=== PATIENT | male | born 1980 | race Caucasian/White ===

== ENCOUNTER 2016-10-15 22:33 | Emergency (ER) | payer MEDICAID, OTHER ==
[~2016-10-15] VITALS: Ht 167.6 cm; Wt 92.5 kg
[2016-10-15 22:37] VITALS: Ht 167.6 cm; Wt 92.5 kg
[2016-10-15] MEDS ORDERED: CETI10CA PO (23:49)
[2016-10-15] MEDS ORDERED: ERYTOPOI RIGHT EYE (23:49)
[2016-10-15] MEDS ORDERED: NAPH15DR22 BOTH EYES (23:49)
--- NOTE | 2016-10-16 00:05 | ERD ---
ER Documentation Chief Complaint Date/Time DATE: 10/16/16 TIME: 00:01 Chief Complaint right upper eyelid swelling/pain HPI 36-year-old male presents here in emergency department for complaints of a bump in the right upper eyelid that started yesterday. Patient is complaining of pain sharp pain 6/10 scale, is worse upon touching the area. Patient is complaining of bilateral eye itching watery eyes for the last 2 months. Patient denies any eye discharge. Patient denies any fever or chills. Patient denies any trauma in the eye. Patient denies any vision changes. ROS All systems reviewed and are negative except as per history of present illness. Medications Home Meds Active Scripts Cetirizine Hcl* (Zyrtec*) 10 Mg Capsule, 10 MG PO DAILY, #30 TAB.CHEW Prov:NIA VANCE NP 10/15/16 Naphazoline-Pheniramine* (Visine-A*) 15 Ml Drops, 2 DROP BOTH EYES Q4H Y for RED EYES, #1 BOT Prov:NIA VANCE NP 10/15/16 Erythromycin* (Erythromycin* Ophthalmic) 1 Applic Oint, 1 APPLIC RIGHT EYE QID for 7 Days Prov:NIA VANCE NP 10/15/16 Allergies Allergies: Coded Allergies: No Known Allergy (Unverified , 10/15/16) PMhx/Soc Medical and Surgical Hx: pt denies Medical Hx, pt denies Surgical Hx Hx Alcohol Use: No Hx Substance Use: No Hx Tobacco Use: No Smoking Status: Never smoker FmHx Family History: No coronary disease, No diabetes, No other Physical Exam Vitals Vital Signs Date Time Temp Pulse Resp B/P Pulse Ox O2 Delivery O2 Flow Rate FiO2 10/15/16 22:37 97.8 83 20 127/75 98 Physical Exam GENERAL: The patient is well developed and appropriate for usual state of health, in no apparent distress. HEENT: Atraumatic. Bilateral eyes are PERRL EOM intact. Noted right upper eyelid to have a stye, other eye lids are normal. Both conjunctivae noted to be watery. No eye discharge noted. Ears: Normal tympanic membrane, no erythema or bulging. No ear canal swelling. No ear discharge. Nose: normal nasal turbinates , no erythema or swelling. Normal nasal discharge. Throat: oropharynx clear. No tonsillar swelling or tonsillar exudates. No lymphadenopathy. CHEST: Clear to auscultation bilaterally. There are no rales, wheezes or rhonchi. HEART: Regular rate and rhythm. No murmurs, clicks, rubs or gallops. No S3 or S4. ABDOMEN: Soft, nontender and nondistended. Good bowel sounds. No rebound or guarding. No gross peritonitis. No gross organomegaly or masses. No Patel sign or McBurney point tenderness. BACK: No midline or flank tenderness. EXTREMITIES: Equal pulses bilaterally. There is no peripheral clubbing, cyanosis or edema. No focal swelling or erythema. Full range of motion. Grossly neurovascularly intact. NEURO: Alert and oriented. Cranial nerves 2-12 intact. Motor strength in all 4 extremities with 5/5 strength. Sensation grossly intact. Normal speech and gait. SKIN: There is no apparent rash or petechia. The skin is warm and dry. HEMATOLOGIC AND LYMPHATIC: There is no evidence of excessive bruising or lymphedema. No gross cervical, axillary, or inguinal lymphadenopathy. Procedures/MDM Medical decision making: Patient symptoms suspect is consistent with allergic conjunctivitis and right upper eyelid hordeolum. The patient does not have any symptoms of periorbital or orbital cellulitis, no symptoms of abscesses. No symptoms of sepsis at this time. Patient's appears well and is hemodynamically stable. No symptoms of any other eye emergencies at this time. Patient does not have any symptoms of retinal detachment acute closed angle glaucoma, acute bacterial conjunctivitis. Patient was given for Zyrtec, Naphcon ophthalmic solution, erythromycin ophthalmic ointment, is advised to follow-up with primary doctor in 2-3 days for reevaluation of symptoms. Patient is advised to return to emergency department for worsening symptoms. Departure Diagnosis: Primary Impression: Allergic conjunctivitis Laterality: bilateral Qualified Code: H10.13 - Allergic conjunctivitis, bilateral Additional Impression: Hordeolum Hordeolum type: unspecified type Laterality: right Eyelid: upper Qualified Code: H00.011 - Hordeolum of right upper eyelid, unspecified hordeolum type Condition: Stable Patient Instructions: Conjunctivitis, Allergic, NIA Bach NP October 16, 2016 00:05
== END 2016-10-16 00:04 | disposition home or self-care (01) ==
LOC: FTE 22:33
DX: H10.13 Acute atopic conjunctivitis, bilateral (principal); H00.011 Hordeolum externum right upper eyelid
CPT/HCPCS: 99283

== ENCOUNTER 2016-12-13 21:21 | Emergency (ER) | payer OTHER ==
[~2016-12-13] VITALS: Wt 94.0 kg
[~2016-12-13 21:21] MED LIST: CETI10CA PO; ERYTOPOI RIGHT EYE; NAPH15DR22 BOTH EYES
[2016-12-13] MEDS ORDERED: IBUP-1542 PO (22:37)
[2016-12-13] MEDS ORDERED: CYCL-319 PO (22:37)
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
== END 2016-12-13 22:44 | disposition home or self-care (01) ==
LOC: FTE 21:21
DX: S39.92XA Unspecified injury of lower back, initial encounter (principal); V49.40XA Driver injured in collision with unspecified motor vehicles in traffic accident, initial encounter
CPT/HCPCS: 99283

== ENCOUNTER 2017-01-14 20:52 | Emergency (ER) | payer OTHER ==
[~2017-01-14] VITALS: Ht 172.7 cm; Wt 95.0 kg
[~2017-01-14 20:52] MED LIST changes: +CYCL-319 PO; +IBUP-1542 PO
[2017-01-14 20:55] VITALS: Ht 172.7 cm; Wt 95.0 kg
[2017-01-14] MEDS ORDERED: LIDOCAINE/MYLANTA 40 ML BTL PO STA (21:12)
--- NOTE | 2017-01-14 21:37 | ERD ---
ER Documentation Chief Complaint Date/Time DATE: 01/14/17 TIME: 21:34 Chief Complaint MID/LOWER AP X15 DAYS. +NAUSEA ONLY. HPI 36-year-old male otherwise healthy presents with mid abdominal pain for the past 2-3 weeks associated with mild nausea. He describes as burning pain in the epigastric region, he states it is worse when he lays down at nighttime. He has not had any hemoptysis, hematemesis, fevers or chills, vomiting. Denies chest pain or shortness of breath. He has tried taking [id number] antacids. He denies constitutional symptoms. ROS All systems reviewed and are negative except as per history of present illness. Medications Home Meds Active Scripts Ranitidine Hcl* (Zantac*) 150 Mg Tablet, 150 MG PO BID Y for EPIGASTRIC PAIN, # 30 TAB Prov:TAN THOMAS PA-C 01/15/17 Cyclobenzaprine Hcl* (Cyclobenzaprine Hcl*) 10 Mg Tablet, 10 MG PO TID Y for MUSCLE SPASMS, #15 TAB Prov:CHARLEY GUPTA NP 12/13/16 Ibuprofen* (Motrin*) 600 Mg Tab, 600 MG PO Q6H Y for PAIN AND OR ELEVATED TEMP, #30 TAB Prov:CHARLEY GUPTA NP 12/13/16 Cetirizine Hcl* (Zyrtec*) 10 Mg Capsule, 10 MG PO DAILY, #30 TAB.CHEW Prov:NIA VANCE NP 10/15/16 Naphazoline-Pheniramine* (Visine-A*) 15 Ml Drops, 2 DROP BOTH EYES Q4H Y for RED EYES, #1 BOT Prov:NIA VANCE NP 10/15/16 Erythromycin* (Erythromycin* Ophthalmic) 1 Applic Oint, 1 APPLIC RIGHT EYE QID for 7 Days Prov:NIA VANCE NP 10/15/16 Allergies Allergies: Coded Allergies: No Known Allergy (Unverified , 01/14/17) PMhx/Soc Medical and Surgical Hx: pt denies Medical Hx, pt denies Surgical Hx Hx Alcohol Use: No Hx Substance Use: No Hx Tobacco Use: No Smoking Status: Never smoker Physical Exam Vitals Vital Signs Date Time Temp Pulse Resp B/P Pulse Ox O2 Delivery O2 Flow Rate FiO2 8/16/17 20:55 98.6 90 18 123/93 98 Physical Exam General: Well-developed, well-nourished. The patient appears in no acute distress. HEENT: Head is normocephalic, atraumatic. No scleral icterus. Neck: Supple. Nontender. Lungs: Clear to auscultation. Normal air movement. Heart: Regular rate and rhythm. S1 and S2 are normal. No murmurs, gallops, or rubs. Abdomen: Soft, tender at the mid abdomen, no rebound pain or guarding or mass nondistended. Bowel sounds are normoactive. Extremities: No clubbing or cyanosis. Normal pulses. Moving extremities x 4. No weakness. Neurologic: Alert and oriented 3. No focal deficits. Skin: Normal turgor. No rash or lesions. Result Diagram: 01/14/17212501/14/172125 Results 24 hrs Laboratory Tests Test 01/14/17 21:26 White Blood Count 8.610^3/ul Red Blood Count 5.9010^6/ul Hemoglobin 16.1g/dl Hematocrit 48.9% Mean Corpuscular Volume 82.9fl Mean Corpuscular Hemoglobin 27.3pg Mean Corpuscular Hemoglobin Concent 32.9g/dl Red Cell Distribution Width 13.3% Platelet Count 29363^3/UL Mean Platelet Volume 11.2fl Neutrophils % 53.5% Lymphocytes % 32.4% Monocytes % 6.9% Eosinophils % 5.8% Basophils % 0.8% Nucleated Red Blood Cells % 0.0/100WBC Neutrophils # (Manual) 4.610^3/ul Lymphocytes # 2.810^3/ul Monocytes # 0.610^3/ul Eosinophils # 0.510^3/ul Basophils # 0.110^3/ul Nucleated Red Blood Cells # 0.010^3/ul Urine Color YELLOW Urine Clarity CLEAR Urine pH 6.0 Urine Specific Sharon 1.020 Urine Ketones NEGATIVEmg/dL Urine Nitrite NEGATIVEmg/dL Urine Bilirubin NEGATIVEmg/dL Urine Urobilinogen 1+mg/dL Urine Leukocyte Esterase NEGATIVELeu/ul Urine Hemoglobin NEGATIVEmg/dL Urine Glucose NEGATIVEmg/dL Urine Total Protein NEGATIVEmg/dl Sodium Level 144mmol/L Potassium Level 3.9mmol/L Chloride Level 98mmol/L Carbon Dioxide Level 29mmol/L Anion Gap 21 Blood Urea Nitrogen 17mg/dl Creatinine 0.94mg/dl Glucose Level 117mg/dl Calcium Level 9.4mg/dl Total Bilirubin 0.1mg/dl Direct Bilirubin 0.00mg/dl Indirect Bilirubin 0.1mg/dl Aspartate Amino Transf (AST/SGOT) 79IU/L Alanine Aminotransferase (ALT/SGPT) 202IU/L Alkaline Phosphatase 88IU/L Total Protein 8.1g/dl Albumin 4.6g/dl Globulin 3.50g/dl Albumin/Globulin Ratio 1.31 Lipase 144U/L Current Medications Medications (Trade) Dose Ordered Sig/Halima Route PRN Reason Start Time Stop Time Status Last Admin Dose Admin Miscellaneous Medication (Gi Cocktail (2)) 40 ml ONCE STAT PO 01/14/17 21:12 01/14/17 21:16 DC 01/14/17 21:25 PROCEDURE: Ultrasound right upper quadrant CLINICAL INDICATION: Abdominal pain. TECHNIQUE: Martines scale and color Doppler imaging of the right upper quadrant of the abdomen was performed. COMPARISON: None available. FINDINGS: Pancreas: Not identified due to overlying bowel gas. Liver: Diffuse increased echogenicity, consistent with fatty infiltration. No focal hepatic lesion. Hepatopedal flow in the main portal vein. Gallbladder: Contracted around stones. No wall thickening or pericholecystic fluid. Common bile duct: 4.3 mm in diameter. Right Kidney: 11.7 cm in length.Normal echogenicity. No nephrolithiasis, hydronephrosis, or mass. IMPRESSION: 1. Cholelithiasis without additional findings to suggest acute cholecystitis. 2. Hepatic steatosis. RPTAT: HLBP Signed By: Marko Umanzor M.D 01/14/2017 11:52:39 PM Procedures/MDM ED course: Patient was given a GI cocktail, labs and urine were obtained. The patient's abdominal pain was reexamined. Patient was sitting comfortably with improved pain. Patient was not in any distress. Medical decision m[age]-year-old male presents with mid abdominal pain ongoing for several weeks now. Patient was found to have mildly elevated AST and ALT which subsequently a gallbladder ultrasound was ordered and he was found to have gallstones without evidence of acute cholecystitis. Patient's lipase is normal, he does not have any significant pain history of nausea or fevers indicate choledocholithiasis or acute cholangitis. This patient's abdominal examination is benign, GI cocktail actually helps alleviate his symptoms, he is likely here for gastritis symptoms and incidentally found gallstones from the workup today. He was advised to cut alcohol out, to do a low-fat diet and recheck his labs. He is to follow-up with his primary care doctor in 1 week. Departure Diagnosis: Primary Impression: Abdominal pain Condition: Good TAN THOMAS PA-C Jan 14, 2017 21:37
[2017-01-14 21:41] LABS: BASOPHIL # 0.1 10^3/ul (0.0-0.1); BASOPHILS % 0.8 % (0.0-2.0); EOSINOPHILS # 0.5 10^3/ul (0.0-0.5); EOSINOPHILS % 5.8 % (0.0-7.0); HEMATOCRIT 48.9 % (42.0-52.0); HEMOGLOBIN 16.1 g/dl (14.0-18.0); LYMPHOCYTES # 2.8 10^3/ul (0.8-2.9); LYMPHOCYTES % 32.4 % (15.0-51.0); MEAN CORPUSCULAR HEMOGLOBIN 27.3 pg (29.0-33.0); MEAN CORPUSCULAR HGB CONC 32.9 g/dl (32.0-37.0); MEAN CORPUSCULAR VOLUME 82.9 fl (82.0-101.0); MEAN PLATELET VOLUME 11.2 fl (7.4-10.4); MONOCYTE # 0.6 10^3/ul (0.3-0.9); MONOCYTES % 6.9 % (0.0-11.0); NEUTROPHILS % 53.5 % (39.0-77.0); PLATELET COUNT 218 10^3/UL (140-415); RED CELL DISTRIBUTION WIDTH 13.3 % (11.5-14.5); WHITE BLOOD COUNT 8.6 10^3/ul (4.8-10.8)
[2017-01-14 21:49] LABS: ADD UMIC NO; UR ASCORBIC ACID NEGATIVE (NEGATIVE); UR BILIRUBIN (Dip) NEGATIVE (NEGATIVE); UR BLOOD (Dip) NEGATIVE (NEGATIVE); UR CLARITY CLEAR (CLEAR); UR COLOR YELLOW (YELLOW); UR GLUCOSE (Dip) NEGATIVE (NEGATIVE); UR KETONES (Dip) NEGATIVE (NEGATIVE); UR LEUKOCYTE ESTERASE (Dip) NEGATIVE Leu/ul (NEGATIVE); UR NITRITE (Dip) NEGATIVE (NEGATIVE); UR TOTAL PROTEIN (Dip) NEGATIVE (NEGATIVE); UR UROBILINOGEN (Dip) 1+ mg/dL (NEGATIVE)
[2017-01-14 22:02] LABS: ALBUMIN 4.6 g/dl (3.3-4.9); ALBUMIN/GLOBULIN RATIO 1.31; BILIRUBIN,INDIRECT 0.1 mg/dl (0-1.1); BILIRUBIN,TOTAL 0.1 mg/dl (0.2-1.3); CALCIUM 9.4 mg/dl (8.4-10.2); CREATININE 0.94 mg/dl (0.61-1.24); POTASSIUM 3.9 mmol/L (3.5-5.1); TOTAL PROTEIN 8.1 g/dl (6.1-8.1)
[2017-01-15] MEDS ORDERED: RANI150T9 PO (00:27)
[2017-01-15 00:41] VITALS: BP 120/76; PULSE 78; RESP 16
--- NOTE | 2017-01-15 10:00 | RADRPT ---
PROCEDURE: Ultrasound right upper quadrant CLINICAL INDICATION: Abdominal pain. TECHNIQUE: Martines scale and color Doppler imaging of the right upper quadrant of the abdomen was perf ormed. COMPARISON: None available. FINDINGS: Pancreas: Not identified due to overlying bowel gas. Liver: Diffuse increased echogenicity, consistent with fatty infiltration. No focal hepatic lesion. Hepatopedal flow in the main portal vein. Gallbladder: Contracted around stones. No wall thickening or pericholecystic fluid. Common bile duct: 4.3 mm in diameter. Right Kidney: 11.7 cm in length.Normal echogenicity. No nephrolithiasis, hydronephrosis, or mass. IMPRESSION: 1. Cholelithiasis without additional findings to suggest acute cholecystitis. 2. Hepatic steatosis. RPTAT: HLBP .Marko Umanzor MD, Date Time Electronically viewed and signed by .Marko Umanzor MD, MD on 01/14/2017 23:52 .P/
== END 2017-01-15 00:42 | disposition home or self-care (01) ==
LOC: FTE 20:52
DX: R10.13 Epigastric pain (principal)
CPT/HCPCS: 36415; 76705; 80053; 81003; 83690; 85025; Z7502; Z7610

== ENCOUNTER 2017-09-18 08:31 | Emergency (ER) | END 2017-09-18 09:56 | disposition home or self-care (01) ==

== ENCOUNTER 2017-11-06 20:12 | Emergency (ER) | END 2017-11-06 23:50 | disposition home or self-care (01) ==

== ENCOUNTER 2018-06-20 23:18 | Emergency (ER) | payer OTHER ==
[~2018-06-20] VITALS: Ht 167.6 cm; Wt 96.5 kg
[~2018-06-20 23:18] MED LIST changes: +CEPH-443 PO; +CETI5TAB4 PO; -CYCL-319 PO; +CYCL10TA7 PO; +D-ME473S2 PO; +ERYT1OIN6 OP; -NAPH15DR22 BOTH EYES; +NAPH15DR69 BOTH EYES; +NAPR-985 PO; +RANI150T35 PO
[2018-06-20 23:21] VITALS: Ht 167.6 cm; Wt 96.5 kg
[2018-06-21] MEDS ORDERED: KETOROLAC 15 MG INJ IV STA (00:54)
[2018-06-21] MEDS ORDERED: FAMOTIDINE 20 MG INJ IV STA (00:54)
[2018-06-21] MEDS ORDERED: LIDOCAINE/MYLANTA 40 ML BTL PO STA (00:54)
[2018-06-21] MEDS ORDERED: SOD CHLORIDE 0.9% 1,000 ML IV STA (00:54)
[2018-06-21] MEDS ORDERED: ONDANSETRON 4 MG INJ IV STA (00:54)
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
[2018-06-21] MEDS ORDERED: DICY10CA40 PO (01:43)
[2018-06-21] MEDS ORDERED: ONDA4TAB14 PO (01:43)
[2018-06-21] MEDS ORDERED: CIPR500T4 PO (01:43)
[2018-06-21 02:40] VITALS: BP 130/70; RESP 17
[2018-06-21 03:03] VITALS: PULSE 78
== END 2018-06-21 02:45 | disposition home or self-care (01) ==
LOC: E/R 23:18
DX: S13.4XXA Sprain of ligaments of cervical spine, initial encounter (principal); S39.91XA Unspecified injury of abdomen, initial encounter; R11.2 Nausea with vomiting, unspecified; R19.7 Diarrhea, unspecified; V89.2XXA Person injured in unspecified motor-vehicle accident, traffic, initial encounter; Z87.891 Personal history of nicotine dependence
CPT/HCPCS: 36415; 80053; 83690; 85025; 96374; 96375; J1885; J2405; J7030; Z7502; Z7610

== ENCOUNTER 2018-11-06 19:09 | Emergency (ER) | payer OTHER ==
[~2018-11-06] VITALS: Ht 170.2 cm; Wt 96.6 kg
[~2018-11-06 19:09] MED LIST changes: +CIPR500T4 PO; +DICY10CA40 PO; +ONDA4TAB14 PO
[2018-11-06 19:14] VITALS: Ht 170.2 cm; Wt 96.6 kg
[2018-11-06] MEDS ORDERED: NAPH15DR69 BOTH EYES (20:28)
[2018-11-06] MEDS ORDERED: ALBU18HF INHALATION (20:28)
[2018-11-06] MEDS ORDERED: CETI10CA PO (20:28)
[2018-11-06] MEDS ORDERED: D-ME118S24 PO (20:28)
--- NOTE | 2018-11-06 20:59 | ERD ---
ER Documentation Chief Complaint Chief Complaint COUGH X'S 5 DAYS ROS All systems reviewed and are negative except as per history of present illness. Medications Home Meds Active Scripts Albuterol Sulfate* (Ventolin HFA*) 18 Gm Hfa.aer.ad, 2 PUFF INHALATION Q4H PRN for SHORTNESS OF BREATH, #1 INHALER 2 Refills Prov:TULIO MOSLEY 11/06/18 Naphazoline-Pheniramine* (Visine-A*) 15 Ml Drops, 2 DROP BOTH EYES Q6H PRN for RED EYES for 10 Days, #1 BOTTLE Prov:TULIO MOSLEY 11/06/18 Cetirizine Hcl* (Zyrtec*) 10 Mg Capsule, 10 MG PO DAILY PRN for allergy, #30 TAB Prov:TULIO MOSLEY 11/06/18 D-Methorphan Hb/P-Epd HCl/Bpm (Xzggcmwknx-Xaylwvqzlxq-Ua Syr) 118 Ml Syrup, 5 ML PO Q4H PRN for COUGH for 10 Days, #1 BOTTLE Prov:TULIO MOSLEY 11/06/18 Dicyclomine HCl (Dicyclomine HCl) 10 Mg Capsule, 10 MG PO TID PRN for ABDOMINAL CRAMPING, #20 CAP Prov:RSOA RUCKER MD 06/21/18 Ondansetron (Ondansetron Odt) 4 Mg Tab.rapdis, 4 MG PO Q6H PRN for NAUSEA AND/OR VOMITING, #10 TAB Prov:ROSA RUCKER MD 06/21/18 Ciprofloxacin Hcl* (Ciprofloxacin Hcl*) 500 Mg Tablet, 500 MG PO BID for 3 Days, TAB Prov:ROSA RUCKER MD 06/21/18 Cephalexin* (Keflex*) 500 Mg Capsule, 500 MG PO Q6, #28 CAP Prov:FERNY FRAUSTO DO 11/06/17 Erythromycin Base (Erythromycin) 1 Gm Oint...g., 1 GM OP Q12 for 5 Days Prov:FERNY FRAUSTO DO 11/06/17 Cetirizine Hcl* (Zyrtec*) 5 Mg Tablet, 5 MG PO DAILY, #14 TAB Prov:FERNY FRAUSTO DO 11/06/17 Naproxen* (Naprosyn*) 500 Mg Tablet, 500 MG PO BID PRN for PAIN AND/OR INFLAMMATION, #30 TAB Prov:ROSIO LARSEN PA-C 09/18/17 Dextromethorphan Hb-Promethazine Hcl* (Promethazine DM* Syrup) 473 Ml Syrup, 5 ML PO Q6 PRN for COUGH, #100 ML Prov:ROSIO LARSEN PA-C 09/18/17 Ranitidine Hcl* (Zantac*) 150 Mg Tablet, 150 MG PO BID PRN for EPIGASTRIC PAIN, #30 TAB Prov:TAN THOMAS PA-C 01/15/17 Cyclobenzaprine Hcl* (Cyclobenzaprine Hcl*) 10 Mg Tablet, 10 MG PO TID PRN for MUSCLE SPASMS, #15 TAB Prov:CHARLEY GUPTA NP 12/13/16 Ibuprofen* (Motrin*) 600 Mg Tab, 600 MG PO Q6H PRN for PAIN AND OR ELEVATED TEMP, #30 TAB Prov:CHARLEY GUPTA NP 12/13/16 Cetirizine Hcl* (Zyrtec*) 10 Mg Capsule, 10 MG PO DAILY, #30 TAB.CHEW Prov:NIA VANCE NP 10/15/16 Naphazoline-Pheniramine* (Visine-A*) 15 Ml Drops, 2 DROP BOTH EYES Q4H PRN for RED EYES, #1 BOT Prov:NIA VANCE NP 10/15/16 Erythromycin* (Erythromycin* Ophthalmic) 1 Applic Oint, 1 APPLIC RIGHT EYE QID for 7 Days Prov:NIA VANCE NP 10/15/16 Allergies Allergies: Coded Allergies: No Known Allergy (Unverified , 01/14/17) PMhx/Soc History of Surgery: No Anesthesia Reaction: No Hx Neurological Disorder: No Hx Respiratory Disorders: Yes (BRONCHITIS) Hx Cardiac Disorders: No Hx Psychiatric Problems: No Hx Miscellaneous Medical Probl: No Hx Alcohol Use: Yes Hx Substance Use: No Hx Tobacco Use: No Smoking Status: Never smoker Physical Exam Vitals Vital Signs Date Temp Pulse Resp B/P (MAP) Pulse Ox O2 O2 Flow FiO2 Time Delivery Rate 11/06/18 96.6 83 18 126/84 98 19:14 (98) Physical Exam Const: No acute distress Head: Atraumatic Eyes: Normal Conjunctiva ENT: Normal External Ears, Nose and Mouth. Neck: Full range of motion. No meningismus. Resp: Clear to auscultation bilaterally Cardio: Regular rate and rhythm, no murmurs Abd: Soft, non tender, non distended. Normal bowel sounds Skin: No petechiae or rashes Back: No midline or flank tenderness Ext: No cyanosis, or edema Neur: Awake and alert Psych: Normal Mood and Affect Departure Diagnosis: Primary Impression: Cough Additional Impression: Allergic conjunctivitis Laterality: bilateral Qualified Codes: H10.13 - Acute atopic conjunctivitis, bilateral Condition: Fair Patient Instructions: Conjunctivitis Caused by Irritation, Asthma Medications Additional Instructions: Call your primary care doctor TOMORROW for an appointment during the next 1-2 days.See the doctor sooner or return here if your condition worsens before your appointment time. TULIO MOSLEY DO Nov 06, 2018 20:59
[2018-11-06 21:12] VITALS: BP 123/85; PULSE 71; RESP 18
== END 2018-11-06 21:12 | disposition home or self-care (01) ==
LOC: FTE 19:09
DX: H10.13 Acute atopic conjunctivitis, bilateral (principal)
CPT/HCPCS: 99283

== ENCOUNTER 2019-02-17 22:16 | Emergency (ER) | payer OTHER ==
[~2019-02-17] VITALS: Ht 172.7 cm; Wt 92.3 kg
[~2019-02-17 22:16] MED LIST changes: +ALBU18HF INHALATION; +D-ME118S24 PO; +FAMO-96 PO; +IBUP800T48 PO; +RANI-535 PO; -RANI150T35 PO
[2019-02-17 22:27] VITALS: Ht 172.7 cm; Wt 92.3 kg
[2019-02-17] MEDS ORDERED: FAMOTIDINE 20 MG TAB PO STA (22:55)
[2019-02-17] MEDS ORDERED: BELLADONNA/PHENOBARBITAL TAB PO STA (22:55)
[2019-02-17] MEDS ORDERED: LIDOCAINE/MYLANTA 40 ML BTL PO STA (22:55)
[2019-02-17] MEDS ORDERED: IBUPROFEN 800 MG TAB PO ONE (23:00)
[2019-02-17] MEDS ORDERED: ACETAMINOPHEN 500 MG TAB PO ONE (23:43)
[2019-02-18 00:30] VITALS: BP 135/80; PULSE 90; RESP 18
== END 2019-02-18 00:30 | disposition home or self-care (01) ==
LOC: E/R 22:16
DX: B34.9 Viral infection, unspecified (principal); R10.13 Epigastric pain
CPT/HCPCS: Z7502; Z7610; 99283